=== PATIENT | female | born 1945 | race Caucasian/White ===

== ENCOUNTER 2019-01-29 13:33 | Emergency (ER) | payer OTHER ==
[~2019-01-29] VITALS: Ht 160 cm; Wt 68.0 kg
[2019-01-29 13:40] VITALS: BP_SYST 147
[2019-01-29] MEDS ORDERED: BACITRACIN 1 GM OINT TP ONE (14:00)
[2019-01-29 15:42] VITALS: BP_SYST 143
== END 2019-01-29 15:42 | disposition home or self-care (01) ==
LOC: SED 13:33
DX: S42.255A Nondisplaced fracture of greater tuberosity of left humerus, initial encounter for closed fracture (principal); S00.212A Abrasion of left eyelid and periocular area, initial encounter; E11.9 Type 2 diabetes mellitus without complications; I10 Essential (primary) hypertension; Z98.84 Bariatric surgery status; W10.9XXA Fall (on) (from) unspecified stairs and steps, initial encounter; Y93.01 Activity, walking, marching and hiking; Y92.89 Other specified places as the place of occurrence of the external cause; Y99.8 Other external cause status
CPT/HCPCS: 73030; 73060-TC; 99283

== ENCOUNTER 2024-05-16 19:11 | Inpatient (IN) | payer OTHER ==
[~2024-05-16] VITALS: Ht 157.5 cm; Wt 56.7 kg
[2024-05-16 19:15] VITALS: BP_SYST 150; PULSE 172; RESP 33; TEMP 98; O2SAT 99
[2024-05-16] MEDS: NACL 0.9% 1,000 ML IV ONE (19:48)
[2024-05-16] MEDS: IPRATROPIUM/ALBUTEROL SULFATE 3 ML AMPUL.NEB (DUONEB) INH ONE (20:05)
[2024-05-16 20:20] LABS: BASOPHILS # (AUTO) 0.1 K/uL (0.0-0.2); BASOPHILS % (AUTO) 0.9 % (0.0-2.0); EOSINOPHILS % (AUTO) 0.1 % (0.0-4.0); HEMATOCRIT 35.7 % (36-48); HEMOGLOBIN 11.6 g/dL (12.0-16.0); LYMPHOCYTES # (AUTO) 0.4 K/uL (1.0-5.5); LYMPHOCYTES % (AUTO) 3.2 % (20.5-51.5); MEAN CORPUSCULAR HEMOGLOBIN 28 pg (27-31); MEAN CORPUSCULAR HGB CONC 33 % (32-36); MEAN CORPUSCULAR VOLUME 86 fL (79.0-98.0); MONOCYTES # (AUTO) 1.5 K/uL (0.0-1.0); MONOCYTES % (AUTO) 12.5 % (1.7-9.3); NEUTROPHILS # (AUTO) 10.1 K/uL (1.8-7.7); NEUTROPHILS % (AUTO) 83.3 % (40.0-70.0); PLATELET COUNT (AUTO) 255 K/uL (130-430); RED BLOOD CELL COUNT(AUTO) 4.14 MIL/uL (4.2-6.2); RED CELL DISTRIBUTION WIDTH 16.4 % (9.0-15.0); WHITE BLOOD COUNT (AUTO) 12.2 K/uL (4.8-10.8)
[2024-05-16 20:55] LABS: ANION GAP 11 (5-15); CALCIUM 9.1 mg/dL (8.4-11.0); CARBON DIOXIDE 24 mmol/L (23-29); CHLORIDE 111 mmol/L (98-107); CREATININE 1.48 mg/dL (0.55-1.30); GLUCOSE 231 mg/dL (74-106); POTASSIUM 3.7 mmol/L (3.5-5.1); SODIUM SERUM 146 mmol/L (136-145); UREA NITROGEN, BLOOD 82 mg/dL (8-21)
[2024-05-16 20:59] LABS: ALCOHOL, BLOOD < 3 mg/dL (<10)
[2024-05-16] MEDS: cefTRIAXone 1 GM VIAL IM ONE (22:17)
[2024-05-16] MEDS: dilTIAZem HCL IVP 5 MG/ML VIAL IVP ONE (22:30)
[2024-05-16] MEDS ORDERED: cefTRIAXone 1 GM VIAL ONE (23:37)
[2024-05-16] MEDS ORDERED: AZITHROMYCIN 500 MG/VIAL (ZITHROMAX) IV ONE (23:37)
[2024-05-17] VITALS (17 sets, daily range): BP systolic 125–158; PULSE 81–150; RESP 16–46; TEMP 97.4–97.6; O2SAT 93–99
[2024-05-17] MEDS ORDERED: dilTIAZem HCL IVP 5 MG/ML VIAL ONE (00:20)
[2024-05-17] MEDS: cefTRIAXone 1 GM in D5W 50 ML IV ONE (00:24)
[2024-05-17] MEDS: AZITHROMYCIN 500 MG in NS 250 ML IV ONE (00:25)
[2024-05-17] MEDS: dilTIAZem HCL IVP 5 MG/ML VIAL IVP ONE (00:26)
[2024-05-17 03:17] LABS: INFLUENZA TYPE A Negative (NEGATIVE); INFLUENZA TYPE B NEGATIVE (NEGATIVE)
[2024-05-17 07:06] LABS: BILIRUBIN,URINE NEGATIVE (NEGATIVE); BLOOD, URINE NEGATIVE (NEGATIVE); CLARITY/URINE CLEAR (CLEAR); COLOR,URINE YELLOW (YELLOW); GLUCOSE,URINE TRACE (NEGATIVE); KETONES,URINE NEGATIVE (NEGATIVE); LEUKOCYTE ESTERASE ,URINE NEGATIVE (NEGATIVE); NITRITE, URINE NEGATIVE (NEGATIVE); PROTEIN URINE TRACE (NEGATIVE); UROBILINOGEN,URINE 0.2 (0.2-1.0)
[2024-05-17] MEDS ORDERED: ASPIRIN 81 MG TAB.CHEW ONE (07:46)
[2024-05-17] MEDS: LevALBUTEROL HCL 1.25 MG/0.5 ML *CONC.* VIAL.NEB (XOPENEX CONC.) INH ONE (07:49)
[2024-05-17 07:54] LABS: BARBITURATE, URINE NEGATIVE (NEG <=200); BENZODIAZEPINE, URINE NEGATIVE (NEG <=150); CANNABINOID, URINE NEGATIVE (NEG <=50); COCAINE, URINE NEGATIVE (NEG <=150); METHAMPHETAMINES SCREEN,URINE NEGATIVE (NEG <=500); OPIATE, URINE NEGATIVE (NEG <=100); PHENCYCLIDINE SCREEN,URINE NEGATIVE (NEG <=25); UR TRICYCLIC ANTIDEPRESSANTS NEGATIVE (NEG <=300); URINE AMPHETAMINE NEGATIVE (NEG <=500); URINE METHADONE NEGATIVE (NEG <=200); URINE OXYCODONE SCREEN NEGATIVE (NEG <=100)
[2024-05-17] MEDS: FUROSEMIDE 40 MG/4 ML VIAL IVP ONE (10:46)
[2024-05-17] MEDS: DIGOXIN 0.5 MG/2 ML AMP IVP ONE ×3 (10:48→21:10)
[2024-05-17] MEDS ORDERED: AZITHROMYCIN 250 MG in NS 250 ML IV SCH (13:00)
[2024-05-17] MEDS: cefTRIAXone 1 GM IVPB PREMIX 50 ML IV SCH (13:47)
[2024-05-17] MEDS: D5/0.45 NS 1,000 ML IV SCH (13:47)
[2024-05-17] MEDS ORDERED: DIGOXIN 0.5 MG/2 ML AMP IVP SCH (15:00)
[2024-05-17] MEDS ORDERED: DIGOXIN 0.5 MG/2 ML AMP IVP ONE (15:00)
[2024-05-17] MEDS: AZITHROMYCIN 250 MG in NS 250 ML IV SCH (15:23)
[2024-05-17] MEDS: ENOXAPARIN SODIUM 40 MG/0.4 ML SYRINGE SUBCUT SCH (21:10)
[2024-05-17] MEDS: APIXABAN 2.5 MG TABLET PO SCH (21:12)
[2024-05-18] VITALS (24 sets, daily range): BP systolic 126–167; PULSE 67–102; RESP 11–27; TEMP 97.9–98.4; O2SAT 91–100
[2024-05-18] MEDS: INSULIN REGULAR, HUMAN 100 UNITS/ML, 3 ML VIAL (humuLIN R) SUBCUT PRN (00:21)
[2024-05-18 04:41] LABS: BASOPHILS % (AUTO) 0.1 % (0.0-2.0); EOSINOPHILS % (AUTO) 0.2 % (0.0-4.0); HEMATOCRIT 35.2 % (36-48); HEMOGLOBIN 11.5 g/dL (12.0-16.0); LYMPHOCYTES # (AUTO) 0.4 K/uL (1.0-5.5); LYMPHOCYTES % (AUTO) 4.6 % (20.5-51.5); MEAN CORPUSCULAR HEMOGLOBIN 28 pg (27-31); MEAN CORPUSCULAR HGB CONC 33 % (32-36); MEAN CORPUSCULAR VOLUME 87 fL (79.0-98.0); NEUTROPHILS # (AUTO) 7.7 K/uL (1.8-7.7); NEUTROPHILS % (AUTO) 84.1 % (40.0-70.0); PLATELET COUNT (AUTO) 176 K/uL (130-430); RED BLOOD CELL COUNT(AUTO) 4.05 MIL/uL (4.2-6.2); RED CELL DISTRIBUTION WIDTH 16.6 % (9.0-15.0); WHITE BLOOD COUNT (AUTO) 9.1 K/uL (4.8-10.8)
[2024-05-18 04:57] LABS: ANION GAP 2 (5-15); CALCIUM 9.2 mg/dL (8.4-11.0); CARBON DIOXIDE 37 mmol/L (23-29); CHLORIDE 113 mmol/L (98-107); GLUCOSE 197 mg/dL (74-106); SODIUM SERUM 152 mmol/L (136-145); UREA NITROGEN, BLOOD 45 mg/dL (8-21)
[2024-05-18] MEDS: KCL 40 mEq in 100 mL (PREMIX) 250 ML IV ONE (09:00)
[2024-05-18] MEDS ORDERED: FUROSEMIDE 40 MG/4 ML VIAL IVP SCH (09:00)
[2024-05-18] MEDS: POTASSIUM CHLORIDE 20 MEQ/PKT PACKET PO ONE (10:23)
[2024-05-18] MEDS: METOPROLOL TARTRATE 50 MG TABLET PO ONE (10:23)
[2024-05-18] MEDS ORDERED: KCL 40 mEq in 100 mL (PREMIX) 250 ML IV ONE (14:00)
[2024-05-18] MEDS: POTASSIUM CHLORIDE 40 MEQ in NS 250 ML IV ONE (17:09)
[2024-05-18] MEDS: METOPROLOL TARTRATE 50 MG TABLET PO SCH (20:15)
[2024-05-18 23:12] LABS: LYMPHOCYTES # (AUTO) 0.4 K/uL (1.0-5.5); RED CELL DISTRIBUTION WIDTH 16.5 % (9.0-15.0); WHITE BLOOD COUNT (AUTO) 10.9 K/uL (4.8-10.8)
[2024-05-18 23:37] LABS: BASOPHILS % (AUTO) 0.2 % (0.0-2.0); EOSINOPHILS % (AUTO) 0.3 % (0.0-4.0); HEMATOCRIT 36.3 % (36-48); HEMOGLOBIN 11.8 g/dL (12.0-16.0); LYMPHOCYTES % (AUTO) 3.5 % (20.5-51.5); MEAN CORPUSCULAR HEMOGLOBIN 29 pg (27-31); MEAN CORPUSCULAR HGB CONC 33 % (32-36); MEAN CORPUSCULAR VOLUME 88 fL (79.0-98.0); MONOCYTES # (AUTO) 1.1 K/uL (0.0-1.0); NEUTROPHILS # (AUTO) 9.4 K/uL (1.8-7.7); PLATELET COUNT (AUTO) 191 K/uL (130-430); RED BLOOD CELL COUNT(AUTO) 4.14 MIL/uL (4.2-6.2)
[2024-05-19] VITALS (16 sets, daily range): BP systolic 116–174; PULSE 78–106; RESP 15–26; TEMP 97.6–98; O2SAT 92–100
[2024-05-19] MEDS ORDERED: hydrALAZINE HCL 20 MG/ML VIAL IVP PRN (07:45)
[2024-05-19] MEDS: DIGOXIN 0.125 MG TABLET PO SCH (08:39)
[2024-05-19] MEDS: CARVEDILOL 25 MG TABLET (COREG) PO SCH (08:40)
[2024-05-19] MEDS: FUROSEMIDE 20 MG/2 ML VIAL IVP SCH (08:40)
[2024-05-19] MEDS ORDERED: FUROSEMIDE 20 MG/2 ML VIAL IVP SCH (09:00)
[2024-05-19 14:23] LABS: ALANINE AMINOTRANSFERASE 160 U/L (12-78); ALBUMIN 2.1 g/dL (3.4-4.8); ANION GAP 4 (5-15); ASPARTATE AMINOTRANSFERASE 57 U/L (10-37); CALCIUM 9.4 mg/dL (8.4-11.0); CARBON DIOXIDE 36 mmol/L (23-29); CHLORIDE 105 mmol/L (98-107); CREATININE 0.77 mg/dL (0.55-1.30); GLUCOSE 293 mg/dL (74-106); POTASSIUM 3.7 mmol/L (3.5-5.1); SODIUM SERUM 145 mmol/L (136-145); TOTAL PROTEIN, SERUM 6.6 g/dL (6.4-8.3); UREA NITROGEN, BLOOD 28 mg/dL (8-21)
[2024-05-19 15:42] LABS: EOSINOPHILS # (AUTO) 0.1 K/uL (0.0-0.4); EOSINOPHILS % (AUTO) 0.6 % (0.0-4.0); HEMOGLOBIN 12.4 g/dL (12.0-16.0); LYMPHOCYTES # (AUTO) 0.3 K/uL (1.0-5.5); LYMPHOCYTES % (AUTO) 2.9 % (20.5-51.5); MEAN CORPUSCULAR HEMOGLOBIN 28 pg (27-31); MEAN CORPUSCULAR HGB CONC 33 % (32-36); MEAN CORPUSCULAR VOLUME 87 fL (79.0-98.0); MONOCYTES # (AUTO) 0.7 K/uL (0.0-1.0); MONOCYTES % (AUTO) 7.3 % (1.7-9.3); NEUTROPHILS % (AUTO) 89.2 % (40.0-70.0); PLATELET COUNT (AUTO) 186 K/uL (130-430); RED BLOOD CELL COUNT(AUTO) 4.37 MIL/uL (4.2-6.2); RED CELL DISTRIBUTION WIDTH 16.2 % (9.0-15.0); WHITE BLOOD COUNT (AUTO) 10.1 K/uL (4.8-10.8)
[2024-05-20] VITALS (8 sets, daily range): BP systolic 111–156; PULSE 65–109; RESP 7–23; TEMP 97.1–98.1; O2SAT 99–100
[2024-05-20 06:04] LABS: BASOPHILS % (AUTO) 0.1 % (0.0-2.0); EOSINOPHILS # (AUTO) 0.2 K/uL (0.0-0.4); EOSINOPHILS % (AUTO) 1.4 % (0.0-4.0); HEMATOCRIT 39.7 % (36-48); HEMOGLOBIN 12.6 g/dL (12.0-16.0); LYMPHOCYTES # (AUTO) 0.5 K/uL (1.0-5.5); LYMPHOCYTES % (AUTO) 4.7 % (20.5-51.5); MEAN CORPUSCULAR HEMOGLOBIN 28 pg (27-31); MEAN CORPUSCULAR HGB CONC 32 % (32-36); MEAN CORPUSCULAR VOLUME 87 fL (79.0-98.0); MONOCYTES % (AUTO) 8.7 % (1.7-9.3); NEUTROPHILS # (AUTO) 9.8 K/uL (1.8-7.7); NEUTROPHILS % (AUTO) 85.1 % (40.0-70.0); PLATELET COUNT (AUTO) 179 K/uL (130-430); RED BLOOD CELL COUNT(AUTO) 4.56 MIL/uL (4.2-6.2); WHITE BLOOD COUNT (AUTO) 11.5 K/uL (4.8-10.8)
[2024-05-20 07:16] LABS: ALANINE AMINOTRANSFERASE 126 U/L (12-78); ALBUMIN 2.1 g/dL (3.4-4.8); ANION GAP 4 (5-15); ASPARTATE AMINOTRANSFERASE 42 U/L (10-37); CALCIUM 9.3 mg/dL (8.4-11.0); CARBON DIOXIDE 38 mmol/L (23-29); CHLORIDE 102 mmol/L (98-107); CREATININE 0.63 mg/dL (0.55-1.30); GLUCOSE 234 mg/dL (74-106); POTASSIUM 3.4 mmol/L (3.5-5.1); SODIUM SERUM 144 mmol/L (136-145); TOTAL BILIRUBIN 0.9 mg/dL (0.0-1.0); TOTAL PROTEIN, SERUM 6.7 g/dL (6.4-8.3); UREA NITROGEN, BLOOD 29 mg/dL (8-21)
[2024-05-21] VITALS: BP_SYST 102; PULSE 65; RESP 18; TEMP 98.5; O2SAT 99
[2024-05-21 07:58] VITALS: BP_SYST 95; PULSE 71; RESP 16; TEMP 96.2; O2SAT 98
[2024-05-21 10:58] VITALS: O2SAT 98
[2024-05-21 11:00] VITALS: BP_SYST 100; PULSE 94; RESP 16; TEMP 97.3; O2SAT 93
[2024-05-21 11:04] LABS: ALANINE AMINOTRANSFERASE 73 U/L (12-78); ALBUMIN 1.8 g/dL (3.4-4.8); ANION GAP 1 (5-15); ASPARTATE AMINOTRANSFERASE 36 U/L (10-37); CALCIUM 8.6 mg/dL (8.4-11.0); CARBON DIOXIDE 38 mmol/L (23-29); CHLORIDE 98 mmol/L (98-107); CREATININE 0.84 mg/dL (0.55-1.30); GLUCOSE 333 mg/dL (74-106); POTASSIUM 3.5 mmol/L (3.5-5.1); SODIUM SERUM 137 mmol/L (136-145); TOTAL BILIRUBIN 0.9 mg/dL (0.0-1.0); TOTAL PROTEIN, SERUM 5.8 g/dL (6.4-8.3); UREA NITROGEN, BLOOD 33 mg/dL (8-21)
[2024-05-21 15:17] VITALS: BP_SYST 96; PULSE 78; RESP 16; TEMP 96.6; O2SAT 96
[2024-05-21 20:00] VITALS: BP_SYST 111; PULSE 98; RESP 18; TEMP 97.4
[2024-05-22 00:02] VITALS: BP_SYST 106; PULSE 95; RESP 18; TEMP 97.7; O2SAT 100
[2024-05-22 06:44] LABS: BASOPHILS % (AUTO) 0.2 % (0.0-2.0); EOSINOPHILS # (AUTO) 0.2 K/uL (0.0-0.4); EOSINOPHILS % (AUTO) 2.4 % (0.0-4.0); HEMATOCRIT 35.4 % (36-48); HEMOGLOBIN 11.5 g/dL (12.0-16.0); LYMPHOCYTES # (AUTO) 0.7 K/uL (1.0-5.5); LYMPHOCYTES % (AUTO) 7.5 % (20.5-51.5); MEAN CORPUSCULAR HEMOGLOBIN 28 pg (27-31); MEAN CORPUSCULAR HGB CONC 33 % (32-36); MEAN CORPUSCULAR VOLUME 86 fL (79.0-98.0); MONOCYTES # (AUTO) 1.1 K/uL (0.0-1.0); NEUTROPHILS # (AUTO) 7.6 K/uL (1.8-7.7); NEUTROPHILS % (AUTO) 78.9 % (40.0-70.0); PLATELET COUNT (AUTO) 195 K/uL (130-430); RED BLOOD CELL COUNT(AUTO) 4.14 MIL/uL (4.2-6.2); RED CELL DISTRIBUTION WIDTH 15.9 % (9.0-15.0); WHITE BLOOD COUNT (AUTO) 9.6 K/uL (4.8-10.8)
[2024-05-22 07:32] LABS: ANION GAP 2 (5-15); CALCIUM 8.7 mg/dL (8.4-11.0); CARBON DIOXIDE 38 mmol/L (23-29); CHLORIDE 98 mmol/L (98-107); CREATININE 0.69 mg/dL (0.55-1.30); GLUCOSE 85 mg/dL (74-106); POTASSIUM 3.2 mmol/L (3.5-5.1); SODIUM SERUM 138 mmol/L (136-145); UREA NITROGEN, BLOOD 26 mg/dL (8-21)
[2024-05-22 08:00] VITALS: BP_SYST 107; PULSE 96; RESP 18; TEMP 97.5; O2SAT 98
[2024-05-22] MEDS: POTASSIUM CHLORIDE 20 MEQ TABLET.ER PO ONE (10:53)
[2024-05-22 11:04] VITALS: BP_SYST 134; PULSE 51; RESP 16; TEMP 97.7; O2SAT 96
[2024-05-22] MEDS ORDERED: APIX2.5T PO (11:22)
[2024-05-22] MEDS ORDERED: COR25 PO (11:22)
[2024-05-22] MEDS ORDERED: LASI20 PO (11:22)
[2024-05-22] MEDS ORDERED: DIGO125T PO (11:22)
[2024-05-22 14:01] VITALS: BP_SYST 107; PULSE 98; RESP 18; TEMP 97.4; O2SAT 98
[2024-05-22 15:04] VITALS: BP_SYST 131; PULSE 56; RESP 17; TEMP 98.8; O2SAT 93
== END 2024-05-22 16:40 | DRG 177 ==
LOC: SED 19:11 → SIC 22:24 → STU 05-20 17:21
PROVIDERS: ADMIT Specialist; ATTEND Specialist
DX: J69.0 Pneumonitis due to inhalation of food and vomit (principal); I50.23 Acute on chronic systolic (congestive) heart failure; J96.01 Acute respiratory failure with hypoxia; N17.9 Acute kidney failure, unspecified; N39.0 Urinary tract infection, site not specified; G93.49 Other encephalopathy; E87.0 Hyperosmolality and hypernatremia; E86.0 Dehydration; I48.91 Unspecified atrial fibrillation; Z20.822 Contact with and (suspected) exposure to COVID-19; I25.10 Atherosclerotic heart disease of native coronary artery without angina pectoris; E87.6 Hypokalemia; C50.912 Malignant neoplasm of unspecified site of left female breast; E11.22 Type 2 diabetes mellitus with diabetic chronic kidney disease; I12.9 Hypertensive chronic kidney disease with stage 1 through stage 4 chronic kidney disease, or unspecified chronic kidney disease; N18.9 Chronic kidney disease, unspecified; C50.911 Malignant neoplasm of unspecified site of right female breast; E78.5 Hyperlipidemia, unspecified; Z95.1 Presence of aortocoronary bypass graft; Z79.01 Long term (current) use of anticoagulants
CPT/HCPCS: 36415; 70450-TC; 70551; 71045; 80048; 80053; 80162; 80307; 81001; 81003; 82948; 83880; 84484; 85025; 85730; 87040; 87081; 92610-GN; 93005; 93306; 93970; 94070; 94640; 94664; 94760; 96360; 97110-GP; 97116-GP; 97163-GP; 97530-GP; 99291; G0378; G0482; J0456; J0696; J1160; J1650; J1815; J1940; J3480; J3490; J7050; J7060; J7612